=== PATIENT | female | born 1950 | race Caucasian/White ===

== ENCOUNTER → 2020-07-08 11:43 | Outpatient (CLI) | payer MEDICARE, SELFPAY ==
--- NOTE | 2020-07-08 11:46 | BI_ITS ---
MAMMOGRAPHY - BILATERAL SCREENING REASON FOR EXAM: Female, 70 years old. Routine annual screening examination. PERTINENT HISTORY: Sister with breast cancer. Mother with breast cancer. Grandmother with breast cancer TECHNIQUE: Digital bilateral breast keri (3D mammographic acquisition) in the CC and MLO projections. 2-D mediolateral oblique (MLO) and craniocaudad (CC) views of both breasts were obtained. CAD: Full Field Digital Mammography with Computer Added Detection was performed. COMPARISON: Comparison is made with prior outside examination 07/05/2019. FINDINGS: Breast Composition: The breasts are almost entirely fatty. There are no dominant masses or suspicious calcifications. Stable small bilateral axillary lymph nodes. No other significant abnormalities are identified. There has been no significant change since the prior study. BI/SCREEN MAMM (CAD) W/KERI BILAT IMPRESSION: Stable bilateral screening mammogram. Yearly follow-up mammogram recommended. (A) ASSESSMENT CATEGORY: BIRADS Category 2: Benign. A letter regarding these results will be sent to the patient by the facility within 30 days. Approximately 10% of breast cancers are not detected by mammography. A normal mammogram should not delay biopsy of a clinically suspicious abnormality. [id number] Electronically Signed: Sean Herrera, at 13:50 EST , Service support ,
== END ==
PROVIDERS: PCP Family Medicine; Referring Provider Family Medicine; Visit Provider Family Medicine
DX: Z12.31 Encounter for screening mammogram for malignant neoplasm of breast (principal)
CPT/HCPCS: 77063; 77067

== ENCOUNTER → 2021-07-09 10:29 | Outpatient (CLI) | payer MEDICARE, SELFPAY ==
--- NOTE | 2021-07-09 10:33 | BI_ITS ---
MAMMOGRAPHY - BILATERAL SCREENING REASON FOR EXAM: Female, 71 years old. Routine annual screening examination. PERTINENT HISTORY: Sister with breast cancer. Mother with breast cancer. Grandmother with breast cancer. TECHNIQUE: Digital bilateral breast keri (3D mammographic acquisition) in the CC and MLO projections. 2-D mediolateral oblique (MLO) and craniocaudad (CC) views of both breasts were obtained. CAD: Full Field Digital Mammography with Computer Added Detection was performed. COMPARISON: Comparison is made with prior study dated 07/08/2020. FINDINGS: Breast Composition: The breasts are almost entirely fatty. There are no dominant masses or suspicious calcifications. A tissue clip marker is seen in the upper lateral aspect of the right breast. Stable small benign-appearing bilateral axillary lymph nodes. No other significant abnormalities are identified. There has been no significant change since the prior study. BI/SCRN MAMM (CAD)W/KERI BILAT IMPRESSION: Stable bilateral screening mammogram. Yearly follow-up mammogram recommended. (A) ASSESSMENT CATEGORY: BIRADS Category 2: Benign. A letter regarding these results will be sent to the patient by the facility within 30 days. Approximately 10% of breast cancers are not detected by mammography. A normal mammogram should not delay biopsy of a clinically suspicious abnormality. [id number] Electronically Signed: Sean Herrera MD at 12:33 EDT , Service support ,
== END ==
PROVIDERS: PCP Family Medicine; Visit Provider Family Medicine
DX: Z12.31 Encounter for screening mammogram for malignant neoplasm of breast (principal)
CPT/HCPCS: 77063; 77067

== ENCOUNTER → 2022-07-10 | Outpatient (CLI) | payer MEDICARE, SELFPAY ==
--- NOTE | 2022-07-10 10:20 | BI_ITS ---
MAMMOGRAPHY - BILATERAL SCREENING REASON FOR EXAM: Female, 72 years old. Routine annual screening examination. PERTINENT HISTORY: Sister with breast cancer. Sister with breast cancer. Mother with breast cancer. Grandmother with breast cancer. TECHNIQUE: Digital bilateral breast keri (3D mammographic acquisition) in the CC and MLO projections. 2-D mediolateral oblique (MLO) and craniocaudad (CC) views of both breasts were obtained. CAD: Full Field Digital Mammography with Computer Added Detection was performed. COMPARISON: Comparison is made with prior study 07/09/2021. FINDINGS: Breast Composition: The breasts are almost entirely fatty. There are no dominant masses or suspicious calcifications. A tissue clip marker is once again seen in the upper lateral aspect of the right breast stable small benign-appearing bilateral axillary lymph nodes. No other significant abnormalities are identified. There has been no significant change since the prior study. BI/SCRN MAMM (CAD)W/KERI BILAT IMPRESSION: Stable bilateral screening mammogram. Yearly follow-up mammogram recommended. (A) ASSESSMENT CATEGORY: BIRADS Category 2: Benign. A letter regarding these results will be sent to the patient by the facility within 30 days. Approximately 10% of breast cancers are not detected by mammography. A normal mammogram should not delay biopsy of a clinically suspicious abnormality. [id number] Electronically Signed: Sean Herrera MD at 11:16 EDT ,
== END | disposition home or self-care (01) ==
LOC: OPBI 10:18
PROVIDERS: PCP Family Medicine; Visit Provider Family Medicine
DX: Z12.31 Encounter for screening mammogram for malignant neoplasm of breast (principal); Z80.3 Family history of malignant neoplasm of breast
CPT/HCPCS: 77063; 77067

== ENCOUNTER 2023-11-08 09:38 | Inpatient (IN) | payer MEDICARE, SELFPAY ==
[2023-11-08] VITALS (9 sets, daily range): BP systolic 155–186; BP diastolic 55–92; PULSE 62–79; RESP 16–22; TEMP 36.1–36.7; O2SAT 94–96; BMI 54.8
--- NOTE | 2023-11-08 09:47 | CT_ITS ---
HISTORY: right anterior lower rib trauma. TECHNIQUE: Helically acquired images were obtained of the chest without contrast. A radiation dose optimization technique was used for this scan. 940 images. COMPARISON: None. FINDINGS: LARGE AIRWAYS: Patent. LUNGS: Very mild lower lobe atelectasis. PLEURA: No pneumothorax or significant pleural effusion. HEART/PERICARDIUM: Heart within normal limits in size with coronary artery calcification. No pericardial effusion. VESSELS: Thoracic aorta nondilated. Mild atherosclerosis. MEDIASTINUM/KATE: No pathologically enlarged adenopathy. Nodular thyroid with small calcifications in the right lobe. UPPER ABDOMEN: Left renal cortical scarring with a 2 mm nonobstructing calcification. 4.4 cm simple appearing right renal cyst. BONES: Nondisplaced segmental fractures of the lateral right fourth through sixth ribs. Nondisplaced lateral right seventh and eighth rib fractures. Chronic left third through fifth anterior rib fractures. Degenerative change and spinal osteophytes noted. 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 Chronic mild T12 and L2 compression fractures. Mild scoliosis. CT/Chest without Contrast IMPRESSION: Nondisplaced right fourth through eighth rib fractures. No pneumothorax. Electronically Signed: Ute Berumen MD at 10:52 EST ,
--- NOTE | 2023-11-08 09:49 | EX.ED.DYSGE1 ---
HPI History of Present Illness Chief Complaint: Fall Informant: patient Narrative Narrative: 73-year-old female presenting to the emergency room following a fall. Patient states she went to [facility] dermatology for a blister on her right calf. She states that she had a zinc boot placed and is to see them again in 1 week. She was leaving her appointment going down the ramp with her walker and the walker got away from her and she fell forward twisting slightly and landing on the right shoulder arm. She notes pain from the shoulder to the mid right arm. She notes painful range of motion. She also notes pain in the right lower anterior ribs. She denies any shortness of breath. She denies any head or neck injury. She denies headache. No loss of consciousness. She got up with assistance and did not have any pain in the pelvis hips or legs. She denies any symptoms in the right arm from the elbow distally. [facility] Medical History Carpal tunnel syndrome Cellulitis Fibroid Gout Kidney disease Meralgia paraesthetica Shingles rash Sleep apnea Spinal stenosis Home Medications cholecalciferol (vitamin D3) 125 mcg (5,000 unit) capsule 5,000 unit PO DAILY 11/08/23 [History Last Taken Unknown] ferrous sulfate 325 mg (65 mg iron) tablet 325 mg PO DAILY 11/08/23 [History Last Taken Unknown] lisinopril 40 mg tablet 40 mg PO DAILY HTN 11/08/23 [History Last Taken 11/08/23] sertraline 50 mg tablet 50 mg PO Q24H 11/08/23 [History Last Taken 11/08/23] Allergy/AdvReac Type Severity Reaction Status Date / Time ciprofloxacin [From Cipro] Allergy Mild Hives Verified 11/08/23 09:43 sulfamethoxazole Allergy Mild Hives Verified 11/08/23 09:43 [From Bactrim] trimethoprim [From Bactrim] Allergy Mild Hives Verified 11/08/23 09:43 amoxicillin AdvReac Mild Diarrhea Verified 11/08/23 09:43 Surgical History H/O: hysterectomy History of cholecystectomy History of tonsillectomy Social History Smoking Status: Never smoker ROS ROS ED Constitutional Constitutional ED: Denies chills, fever(s) or weight loss Eyes Eyes: Denies change in vision or diplopia ENT ENT ED: Denies ear pain, rhinorrhea or sore throat Cardiovascular Cardiovascular: Denies chest pain, orthopnea, palpitations or racing heartbeat Respiratory/Chest Respiratory/Chest: Reports other Details: Pain anterior lower right chest ; Denies cough, dyspnea or orthopnea Gastrointestinal Gastrointestinal: Denies abdominal pain, diarrhea, nausea or vomiting Genitourinary Genitourinary ED: Denies dysuria, hematuria or urinary frequency Musculoskeletal Musculoskeletal: Reports other Details: Right arm/shoulder pain ; Denies arthralgias, back pain, myalgias or neck pain Integumentary Reports other Details: Blister right lower leg ; Denies abscess or rash Neurologic Neurologic: Denies headache(s) or weakness Psychiatric Psychiatric: Denies anxiety, depression, suicidal ideation or suicidal thoughts Endocrine Endocrinology: Denies polydipsia, polyphagia or polyuria Allergic/Immunologic Allergic/Immunologic ED: Denies mouth swelling, tongue swelling or urticaria EXAM Physical Exam Const Vital Signs: 11/08/23 09:39 11/08/23 09:47 11/08/23 12:07 Temperature 97 F L Temperature Source Temporal Pulse Rate 79 79 Respiratory Rate 16 18 Respiratory Effort Normal Non-Labored Respiratory Depth Normal Respiratory Pattern Normal Blood Pressure 168/92 H 155/73 H Blood Pressure Mean 117 100 Pulse Ox 95 96 94 Oxygen Delivery Method Room Air Room Air Room Air Positive well nourished, well developed and obese General Appearance ED: well developed Nutritional Appearance: obese HEENT Reports normocephalic, head/scalp atraumatic and moist mucous membranes Eyes PERRL and EOMs intact bilaterally Neck no lymphadenopathy, supple and no JVD Chest Wall Negative for palpation of chest normal Chest Narrative: Tender to palpation in the anterior lower ribs. There is no obvious ecchymosis or abrasions noted. No crepitance felt. Resp normal respiratory effort and clear to auscultation bilaterally Cardio regular rate, regular rhythm and no murmurs GI normal to inspection, nondistended, normoactive bowel sounds and non-tender Palpation: soft Back/Spine no CVA tenderness and normal ROM Cervical Spine: Negative for cervical spine tenderness Thoracic Spine / Upper Back: Negative for thoracic spinal tenderness or paraspinal muscle tenderness Lumbar Spine / Lower Back: Negative for lumbar spinal tenderness Extremity Extremity Narrative: Patient has tenderness palpation right shoulder and inferiorly to the distal third of the humerus. There is no obvious deformity. Patient's body habitus does limit exam. She has painful range of motion. Neurovascularly appears intact distally. No obvious skin trauma. General Extremety ED: Negative for edema General Extremity: Negative for edema Neuro oriented x3 and CN's II-XII intact bilaterally Sensorium / Orientation: alert Motor Exam: strength 5/5 throughout Psych mental status grossly normal Mood & Affect: Negative for depressed or tearful Skin no rashes or lesions noted and no wounds MDM MDM MDM Narrative Medical decision making narrative: Patient received a Percocet for pain. My depend interpretation of the humerus x-ray is no acute fracture. Magnapen interpretation of the shoulder x-ray is no acute fracture. CT of the chest demonstrates nondisplaced fractures of ribs 4, 5, 6, 7, and 8. No obvious pneumothorax or significant hemothorax noted. No obvious pulmonary contusion. Patient is 73 years old morbidly obese already uses a walker and now has 5 consecutive rib fractures. Patient continues to have significant pain with cough and movement. I spoke with general surgery Dr. Martin who is happy to follow along with the patient. I will speak with the hospitalist regarding admission for pain control and probable PT/OT eval should the patient require rehab placement. Radiography Diagnostic Testing: Clinical Impression(s) from Imaging Studies Chest CT 11/08/23 09:47 IMPRESSION: Nondisplaced right fourth through eighth rib fractures. No pneumothorax. Electronically Signed: Ute Berumen MD at 10:52 EST , Humerus X-Ray 11/08/23 10:32 IMPRESSION: Normal x-ray examination of the right humerus. Electronically Signed: Forrest Presley MD at 10:50 EST , Shoulder X-Ray 11/08/23 11:05 IMPRESSION: No definite acute fracture or dislocation identified in the right shoulder. Electronically Signed: Ute Berumen MD at 11:18 EST , Discharge Plan Dx/Rx/DC Orders Clinical Impression: Multiple closed fractures of ribs of right side, Fall, Contusion of arm, right Disposition Disposition: Acute Care Hospital [facility]
[2023-11-08] MEDS: Oxycodone/Apap 5/325 Tablet PO (10:08)
--- NOTE | 2023-11-08 10:32 | RAD_ITS ---
STUDY: X-RAY - RIGHT HUMERUS REASON FOR EXAM: Female, 73 years old. Injury. TECHNIQUE: 2 views of the right humerus. COMPARISON: None. FINDINGS: Normal visualized humerus. There is no demonstrated fracture or osseous destructive process. There is no demonstrated soft tissue abnormality. RAD/Humerus min 2 Views IMPRESSION: Normal x-ray examination of the right humerus. Electronically Signed: Forrest Presley MD at 10:50 EST ,
--- NOTE | 2023-11-08 11:05 | RAD_ITS ---
HISTORY: injury. TECHNIQUE: XR Shoulder Min 2 Views. COMPARISON: None. FINDINGS: BONES : No acute fracture identified. JOINTS: No dislocation. Moderate degenerative change. SOFT TISSUES: Limited evaluation due to body habitus. RAD/Shoulder min 2 Views IMPRESSION: No definite acute fracture or dislocation identified in the right shoulder. Electronically Signed: Ute Berumen MD at 11:18 EST ,
--- NOTE | 2023-11-08 12:06 | PCM.HP.STD ---
HPI - General General Date of Admission: 11/08/23 Date of Service: 11/08/23 Chief Complaint: Mechanical fall with right rib fractures, debility HPI Narrative LISA MEIER, is a 73 F who presented to [facility] ED on 11/08/2023 after a mechanical fall. Patient seen at bedside on the floor shortly after arriving over from the ED. Patient was sitting comfortably in bedside chair, conversing normally, in no acute distress. Patient is very pleasant. Patient states she was at a dermatology appointment this morning for a blister on her right calf, had zinc boot placed for this. As she was leaving her appointment and going on the ramp with her walker, her walker got away from her and she fell forward with slight twisting and landed on her right side. States had pain from the shoulder to the mid right arm and into the right side of her chest after the fall. Had moderate pain at rest that became very severe with any motion. She otherwise denied any shortness of breath or difficulty breathing. Denied any lightheadedness or dizziness contributing to the fall. Did not have any loss of consciousness and did not hit her head. States she got up with assistance from staff there and did not have any pain in the pelvis, hips or legs. Patient lives at home alone and was concerned about being able to care for self at home, show she requested admission to the hospital for further evaluation by therapy. No other acute concerns at this time. [facility] Medical History Carpal tunnel syndrome Cellulitis Fibroid Gout Kidney disease Meralgia paraesthetica Shingles rash Sleep apnea Spinal stenosis Home Medications cholecalciferol (vitamin D3) 125 mcg (5,000 unit) capsule 5,000 unit PO DAILY supplemental 11/08/23 [History Last Taken 11/07/23] ferrous sulfate 325 mg (65 mg iron) tablet 325 mg PO DAILY supplemental 11/08/23 [History Last Taken 11/07/23] lisinopril 40 mg tablet 40 mg PO DAILY HTN 11/08/23 [History Last Taken 11/08/23] sertraline 50 mg tablet 50 mg PO Q24H 11/08/23 [History Last Taken 11/08/23] Allergy/AdvReac Type Severity Reaction Status Date / Time ciprofloxacin [From Cipro] Allergy Mild Hives Verified 11/08/23 09:43 sulfamethoxazole Allergy Mild Hives Verified 11/08/23 09:43 [From Bactrim] trimethoprim [From Bactrim] Allergy Mild Hives Verified 11/08/23 09:43 amoxicillin AdvReac Mild Diarrhea Verified 11/08/23 09:43 Surgical History H/O: hysterectomy History of cholecystectomy History of tonsillectomy Social History Smoking Status: Never smoker ROS Constitutional Constitutional: Denies chills, fatigue, fever(s) or weakness Eyes Eyes: Denies change in vision Cardiovascular Cardiovascular: Denies chest pain Respiratory/Chest Respiratory/Chest: Denies cough, shortness of breath at rest or shortness of breath with exertion Gastrointestinal Gastrointestinal: Denies abdominal pain Genitourinary Genitourinary: Denies dysuria Musculoskeletal Musculoskeletal: Reports joint pain and other Details: Right-sided chest pain, right shoulder and right elbow pain. ; Denies back pain Neurologic Neurologic: Denies dizziness, focal weakness, headache(s), numbness, paresthesias or syncope Vital Signs Vital Signs Vital Signs: 11/08/23 09:39 11/08/23 09:47 Temperature 97 F L Temperature Source Temporal Pulse Rate 79 Respiratory Rate 16 Respiratory Effort Normal Non-Labored Respiratory Depth Normal Respiratory Pattern Normal Blood Pressure 168/92 H Blood Pressure Mean 117 Pulse Ox 95 96 Oxygen Delivery Method Room Air Room Air Weight Weight: 136 kg Body Mass Index (BMI) 54.8 Physical Exam Const alert, oriented x3 and no apparent distress Constitutional Narrative: Elderly female, morbidly obese, very pleasant, sitting comfortably in bedside chair, conversing normally, no acute distress. General Appearance: cooperative and comfortable HEENT normocephalic, head/scalp atraumatic, hearing grossly normal bilaterally, nasal mucous membranes and turbinates normal and moist oral mucous membranes Eyes PERRL, EOMs intact bilaterally and conjunctivae normal Chest inspection of chest normal Chest Narrative: Mild to moderate tenderness palpation in the right lateral rib area, no external bruising noted. Resp normal respiratory effort, normal air movement, no use of accessory muscles and clear to auscultation bilaterally Cardio regular rate, regular rhythm, no murmurs and peripheral pulses 2+ throughout GI normal to inspection, nondistended, normoactive bowel sounds, soft to palpation, non-tender and non-distended Back/Spine normal ROM Extremity normal to inspection and no pedal edema Extremity Narrative: Mild to moderate tenderness to palpation in right shoulder down into right elbow. Reported moderate pain with any motion of the arm. Skin Skin Narrative: Right foot boot noted. Neuro moves all extremities and no focal motor deficits Speech: speech normal Psych mental status grossly normal Results Imaging Radiology Impression Chest CT 11/08/23 09:47 IMPRESSION: Nondisplaced right fourth through eighth rib fractures. No pneumothorax. Electronically Signed: Ute Berumen MD at 10:52 EST , Humerus X-Ray 11/08/23 10:32 IMPRESSION: Normal x-ray examination of the right humerus. Electronically Signed: Forrest Presley MD at 10:50 EST , Shoulder X-Ray 11/08/23 11:05 IMPRESSION: No definite acute fracture or dislocation identified in the right shoulder. Electronically Signed: Ute Berumen MD at 11:18 EST , Assessment & Plan Assessment/Plan (1) Fall: (2) Multiple closed fractures of ribs of right side: (3) Debility: PLAN: Plan Patient is a 73-year-old female who presented [facility] ED on 11/08/2023 with right-sided chest pain and arm pain after a mechanical fall. 1. Mechanical fall with acute debility, nondisplaced right 4th-8th rib fractures ? Lives alone, mild debility at baseline in part due to her super morbid obesity, uses walker for ambulation. ? Had mechanical fall onto right side, denied presyncopal symptoms. ? Right shoulder and humerus x-rays with no acute fracture. ? CT chest showed nondisplaced right fourth through eighth rib fractures. No pneumothorax noted. Also noted chronic left third through fifth anterior rib fractures from previous fall. ? ED discussed with on-call surgery, no surgical intervention required. ? PT/OT/case management consulted. Suspect patient will need either home with home health care versus SNF on discharge. ? Pain control with scheduled Tylenol, lidocaine patch, as needed oxycodone for now. Incentive spirometry at bedside. Chronic medical conditions: ? Super morbid obesity: BMI 54 on admit. Complicates hospital course, care and prognosis. ? Hypertension: Continue home lisinopril. ? Depression: Continue home sertraline. DVT prophylaxis: Lovenox twice daily CODE STATUS: Full code, verified Expected disposition: Home with home health care versus SNF, 2 to 3 days Total clinical time spent by myself addressing the patient's medical issues, reviewing all the data, and collaborating with patient's care team: 55 minutes. Charges/Coding Visit Charges Inpatient E&M: 03015 Init Hosp L2
[2023-11-08] MEDS: oxyCODONE 5 MG Tablet PO ×2 (14:11→22:09)
[2023-11-08] MEDS: Acetaminophen 500 MG Tablet 1000 MG PO ×2 (14:11→21:15)
[2023-11-08] MEDS: Lidocaine 5% Patch 1 PATCH TOPICAL (16:43)
[2023-11-08 18:01] LABS: Absolute Lymphocyte Count 1.11 X10^3/uL (0.83-4.51); Absolute Neutrophil Count 12.8 X10^3/uL (2.0-7.7); Basophil# 0.06 X10^3/uL; Basophil% 0.4 % (0-1); Eosinophil# 0.01 X10^3/uL; Eosinophils% 0.1 % (0-5); Hematocrit 40.8 % (37-47); Hemoglobin 12.7 g/dL (12.0-15.0); Lymphocyte # 1.11 X10^3/ul (0.83-4.51); Lymphocyte % 7.6 % (19-41); Mean Corp Hgb Conc 31.1 g/dL (32-36); Mean Corpuscular Hgb 27.9 pg (27.0-32.0); Mean Corpuscular Volume 89.5 fL (81-99); Mean Platelet Vol. 11.2 fl (6.2-12.0); Monocyte# 0.63 X10^3/uL; Monocyte% 4.3 % (0-10); NRBC Flagged by Analyzer 0 % (0-5); Neutrophil # 12.78 X10^3/uL (2.7-7.7); Neutrophil % 87.3 % (47-70); Platelet Count 231 K/mm3 (150-450); RBC Distribution Width CV 15.5 % (11.6-14.6); RBC Distribution Width SD 50.7 fl (35.1-43.9); Red Blood Count 4.56 M/mm3 (4.2-5.4); White Blood Count 14.6 K/mm3 (4.4-11.0)
[2023-11-08 18:14] LABS: Anion Gap 5 (5-15); BUN 19 mg/dL (7-18); BUN/Creat Ratio 14.5 RATIO (10-20); Chloride 105 mmol/L (98-107); Creatinine, Serum 1.31 mg/dL (0.55-1.02); EST Glomerular Filtration Rate 42 mL/min (>60); Est Glom Filt Rate - Afr Amer 51 mL/min (>60); Estimated Creatinine Clearance 51.76 ml/min; Glucose 169 mg/dL (74-106); Potassium 3.8 mmol/L (3.5-5.1); Sodium Level 138 mmol/L (136-145)
[2023-11-08] MEDS: Enoxaparin 40 MG/0.4 ML Syringe SC (21:16)
[2023-11-09] VITALS (8 sets, daily range): BP systolic 99–165; BP diastolic 58–87; PULSE 39–66; RESP 16; TEMP 36.4–36.8; O2SAT 93–96
[2023-11-09] MEDS: oxyCODONE 5 MG Tablet PO ×2 (02:31→21:46)
[2023-11-09] MEDS: Acetaminophen 500 MG Tablet 1000 MG PO ×3 (05:53→21:38)
[2023-11-09 06:57] LABS: Hematocrit 37.3 % (37-47); Hemoglobin 11.6 g/dL (12.0-15.0); Mean Corp Hgb Conc 31.1 g/dL (32-36); Mean Corpuscular Hgb 28.1 pg (27.0-32.0); Mean Corpuscular Volume 90.3 fL (81-99); Mean Platelet Vol. 11.7 fl (6.2-12.0); Platelet Count 199 K/mm3 (150-450); RBC Distribution Width CV 15.4 % (11.6-14.6); RBC Distribution Width SD 50.8 fl (35.1-43.9); Red Blood Count 4.13 M/mm3 (4.2-5.4); White Blood Count 8.6 K/mm3 (4.4-11.0)
[2023-11-09 08:15] LABS: Anion Gap 5 (5-15); BUN 20 mg/dL (7-18); BUN/Creat Ratio 18.2 RATIO (10-20); Calcium,Total 9.1 mg/dL (8.5-10.1); Chloride 107 mmol/L (98-107); EST Glomerular Filtration Rate 52 mL/min (>60); Est Glom Filt Rate - Afr Amer 63 mL/min (>60); Estimated Creatinine Clearance 61.64 ml/min; Glucose 100 mg/dL (74-106); Potassium 3.6 mmol/L (3.5-5.1); Sodium Level 139 mmol/L (136-145)
--- NOTE | 2023-11-09 09:38 | CASEMGMT ---
Discharge Planning A list of?SNF providers including quality and resource use data and consistent with the patient's preferred geographic region, medical needs, and insurance network was created in [employer] Guide.? This list was provided to the SW. Bhakti Feliciano Discharge Planning Asst.
--- NOTE | 2023-11-09 10:12 | PCM.PN.HOSP ---
Reason for Visit Reason for Visit: Diagnoses Other malaise (11/08/23) Multiple fractures of ribs, right side, initial encounter for closed fracture (11/08/23) Unspecified fall, initial encounter (11/08/23) Subjective Subjective No acute events overnight. Patient seen at bedside this morning. Patient had just gotten out of bed and was walking around the room with her walker with the assistance of nursing staff. Patient reported moderate pain in her right ribs and right arm with ambulation. States the oxycodone has been somewhat helped with the pain but has also caused her to feel somewhat lightheaded. Patient does feel like going to a [facility] facility on discharge would be the best option for her at this time given her functional limitations and her living at home alone. Patient otherwise denies any acute concerns morning. Objective Data Objective Data Vital Signs: Vital Signs Temp Pulse Resp BP Pulse Ox O2 Del Method O2 Flow Rate 98.3 F 56 L 16 150/58 H 95 Nasal Cannula 2 11/09/23 08:43 11/09/23 08:43 11/09/23 08:43 11/09/23 08:43 11/09/23 09:05 11/09/23 09:05 11/09/23 09:05 FiO2 21 11/08/23 22:40 Oxygen Flow Rate (L/min) 2 Oxygen Delivery Method Nasal Cannula Weight: 136 kg Body Mass Index (BMI) 54.8 Lab / Micro Data 11/09/23 06:20 11/09/23 06:20 Labs: Laboratory Results - last 24 hr 11/08/23 17:44: WBC 14.6 H, RBC 4.56, Hgb 12.7, Hct 40.8, MCV 89.5, MCH 27.9, MCHC 31.1 L, RDW Std Deviation 50.7 H, RDW Coeff of Amina 15.5 H, Plt Count 231, MPV 11.2, Immature Gran % (Auto) 0.300, Neut % (Auto) 87.3 H, Lymph % (Auto) 7.6 L, [place] % (Auto) 4.3, Eos % (Auto) 0.1, Baso % (Auto) 0.4, Absolute Neuts (auto) 12.8 H, Absolute Lymphs (auto) 1.11, Nucleated RBC % 0, Sodium 138, Potassium 3.8, Chloride 105, Carbon Dioxide 28.0, Anion Gap 5, BUN 19 H, Creatinine 1.31 H, Estim Creat Clear Calc 51.76, Est GFR (MDRD) Af Amer 51 L, Est GFR (MDRD) Non-Af 42 L, BUN/Creatinine Ratio 14.5, Glucose 169 H, Calcium 9.0 11/09/23 06:20: WBC 8.6, RBC 4.13 L, Hgb 11.6 L, Hct 37.3, MCV 90.3, MCH 28.1, MCHC 31.1 L, RDW Std Deviation 50.8 H, RDW Coeff of Amina 15.4 H, Plt Count 199, MPV 11.7, Sodium 139, Potassium 3.6, Chloride 107, Carbon Dioxide 27.0, Anion Gap 5, BUN 20 H, Creatinine 1.10 H, Estim Creat Clear Calc 61.64, Est GFR (MDRD) Af Amer 63, Est GFR (MDRD) Non-Af 52 L, BUN/Creatinine Ratio 18.2, Glucose 100, Calcium 9.1 Radiography Diagnostic Testing: Radiology Impression Chest CT 11/08/23 09:47 IMPRESSION: Nondisplaced right fourth through eighth rib fractures. No pneumothorax. Electronically Signed: Ute Berumen MD at 10:52 EST , Humerus X-Ray 11/08/23 10:32 IMPRESSION: Normal x-ray examination of the right humerus. Electronically Signed: Forrest Presley MD at 10:50 EST , Shoulder X-Ray 11/08/23 11:05 IMPRESSION: No definite acute fracture or dislocation identified in the right shoulder. Electronically Signed: Ute Berumen MD at 11:18 EST , Physical Exam Const alert, oriented x3 and no apparent distress Constitutional Narrative: Elderly female, morbidly obese, very pleasant, sitting at edge of bed with 4-point walker in front of her for balance, conversing normally, no acute distress. General Appearance: cooperative and comfortable HEENT normocephalic, head/scalp atraumatic, hearing grossly normal bilaterally, nasal mucous membranes and turbinates normal and moist oral mucous membranes Eyes PERRL, EOMs intact bilaterally and conjunctivae normal Chest inspection of chest normal Chest Narrative: Mild to moderate tenderness palpation in the right lateral rib area, no external bruising noted. Resp normal respiratory effort, normal air movement, no use of accessory muscles and clear to auscultation bilaterally Cardio regular rate, regular rhythm, no murmurs and peripheral pulses 2+ throughout GI normal to inspection, nondistended, normoactive bowel sounds, soft to palpation, non-tender and non-distended Back/Spine normal ROM Extremity normal to inspection and no pedal edema Extremity Narrative: Mild to moderate tenderness to palpation in right shoulder down into right elbow. Reported moderate pain with any motion of the arm. Neuro moves all extremities and no focal motor deficits Speech: speech normal Psych mental status grossly normal Assessment & Plan Assessment/Plan (1) Fall: (2) Multiple closed fractures of ribs of right side: (3) Debility: PLAN: Plan Patient is a 73-year-old female who presented [facility] ED on 11/08/2023 with right-sided chest pain and arm pain after a mechanical fall. 1. Mechanical fall with acute debility, nondisplaced right 4th-8th rib fractures ? Lives alone, mild debility at baseline in part due to her super morbid obesity, uses walker for ambulation. ? Had mechanical fall onto right side, denied presyncopal symptoms. ? Right shoulder and humerus x-rays with no acute fracture. ? CT chest showed nondisplaced right fourth through eighth rib fractures. No pneumothorax noted. Also noted chronic left third through fifth anterior rib fractures from previous fall. ? ED discussed with on-call surgery, no surgical intervention required. ? PT/OT/case management following. Planning for SNF on discharge, medically ready for discharge on 11/08. ? Pain control with scheduled Tylenol, lidocaine patch, as needed oxycodone, as needed IV Toradol. Incentive spirometry at bedside. Chronic medical conditions: ? Super morbid obesity: BMI 54 on admit. Complicates hospital course, care and prognosis. ? Hypertension: Continue home lisinopril. ? Depression: Continue home sertraline. DVT prophylaxis: Lovenox twice daily CODE STATUS: Full code, verified Expected disposition: SNF, medically ready for discharge on 11/08 Total clinical time spent by myself addressing the patient's medical issues, reviewing all the data, and collaborating with patient's care team: 25 minutes. Charges/Coding Visit Charges Inpatient E&M: 13404 Subs Hosp L1
[2023-11-09] MEDS: Lisinopril 40 MG Tablet PO (10:29)
[2023-11-09] MEDS: Sertraline 50 MG Tablet PO (10:29)
[2023-11-09] MEDS: Lidocaine 5% Patch 1 PATCH TOPICAL (10:29)
[2023-11-09] MEDS: Enoxaparin 40 MG/0.4 ML Syringe SC ×2 (10:30→21:06)
--- NOTE | 2023-11-09 10:30 | CASEMGMT ---
DOMINICK ALVARADO Assessment: Face to Face with pt for initial transition planning/care coordination assessment. DOMINICK ALVARADO introduced self and role at [facility], pt voices understanding and consents to assessment. Pt is A&O x4 and answers all questions appropriately at this time. Pt sitting up in chair in no distress with nurse at bedside. Care providers, pharmacy, and demographics verified/updated. Admitting Dx: fall, debility PCP:Iman Barr SHELLFISH CHECKER Specialists:[facility]; Ovi, nephro; Sibley, Ortho; Isbell, [place] Preferred Pharmacy: [facility] Retail Insurance: [employer] Prescription Benefit: yes LNOK: Teresa Barger, Living Arrangements: Pt lives alone in a single story home with no steps to enter. Pt reports she was I in ADL's prior to fall. Pt denies concerns at home. Transportation: Pt does not drive. Pt friend or landlord transports her to medical appts. DME:CPAP, rollator, shower chair- does not use, grab bars in tub/shower HHC/SNF: Denies hx of Pt states she does not feel that she can dc home today. She states she feels she needs further therapy. Pt states she would like to go to [facility] as she and her mother lived in the [place] for 5 years. Pt has a zinc boot on her R leg and she states that she is supposed to go back to [facility] on Wednesday for this. Pt states no further concerns/needs. CM to follow. Advised pt to ask CM if any further question/concerns/needs arise, voices understanding. Pt Goal: [facility] Plan: SNF, updated SWAPNIL Garces RN, CM
--- NOTE | 2023-11-09 10:51 | CASEMGMT ---
Addendum entered by Bhakti Feliciano 11/09/23 11:14: Patient has been accepted by [facility]. SW updated. Bhakti Feliciano, Discharge Planning Asst. Original Note: Discharge Planning Referral sent via [facility] to [facility]. Bhakti Feliciano, Discharge Planning Asst.
[2023-11-09] MEDS: Ferrous Sulfate 325 MG Tablet PO (11:50)
[2023-11-09] MEDS: Cholecalciferol (VIT D3) 25 MCG TABLET (1,000 UNITS) 50 MCG PO (11:50)
--- NOTE | 2023-11-09 16:30 | CASEMGMT ---
Social Work - SDOH assessment & Discharge Planning Met with patient for SDOH assessment. Patient reports does worry about running out of food, mostly due to having to budget money related to having to pay some medical bills. Reports each month, this is getting easier and easier to budget, but it is still a worry. Talked with patient about utilizing food pantries to help supplement what patient is able to buy. Patient also reports transportation is a stressor, has looked into resources for her area, and has even tried the help offered through insurance, but has not had good results. Reports to have friends who help and are reliable. Talked with patient about discharge planning. Patient reports agreement for short term SNF, which was indicated as a need after patient worked with therapy. Patient reports has been to [facility] in the past, so would like to go back to this facility. Did provide patient with SNF list, generated from [facility] for patient's geographical region and insurance network, including medicare quality and star data. Referral was made to [facility] and per Discharge Gear Cutting Machine Set Up Operator has been accepted. Educated patient [facility]ana [facility] can accept, and this travel writer will start precert with [employer]. Faxed clinical referral information to confirmed fax at [facility]. Called [facility] to ensure receipt of the referral. Per Kathia in , information received but there are multiple SNF requests in so likely wont be processed today. Plan: [facility] pending insurance authorization. Follow up with patient for food/transportation resources for [facility]. -KATHERINE Neves
--- NOTE | 2023-11-09 20:31 | CPS ---
pt states just wearing o2 at hs
[2023-11-10] VITALS (7 sets, daily range): BP systolic 100–164; BP diastolic 71–82; PULSE 52–66; RESP 16–18; TEMP 36.6–36.8; O2SAT 94–98
[2023-11-10] MEDS: oxyCODONE 5 MG Tablet PO (02:29)
[2023-11-10] MEDS: Acetaminophen 500 MG Tablet 1000 MG PO ×2 (05:36→15:42)
--- NOTE | 2023-11-10 10:01 | CASEMGMT ---
Addendum entered by Aleksandra Samuel 11/10/23 13:54: Social Work Per physician, pt is ready for discharge. 7000 exemption form completed in [facility]. DC sales assistants and salespersons updated and to complete discharge. JASON Bolton Addendum entered by Aleksandra Samuel 11/10/23 10:23: Social Work Return call from Sanjuana at [facility]. Pt has been approved for admission to [facility]. Auth# [id number]. Physician notified and pt is ready for dc today. SW met with pt and informed of approval and likely dc today. SW provided pt with food and transportation resources. Plan: [facility], when medically ready JASON Bolton Original Note: Social Work Phone call to pt's insurance to check on precert. Case is under review. Insurance to call this SW with determination. JASON Ospina
[2023-11-10] MEDS: Cholecalciferol (VIT D3) 25 MCG TABLET (1,000 UNITS) 50 MCG PO (10:17)
[2023-11-10] MEDS: Lidocaine 5% Patch 1 PATCH TOPICAL (10:17)
[2023-11-10] MEDS: Lisinopril 40 MG Tablet PO (10:18)
[2023-11-10] MEDS: Sertraline 50 MG Tablet PO (10:18)
[2023-11-10] MEDS: Enoxaparin 40 MG/0.4 ML Syringe SC (10:18)
[2023-11-10] MEDS: Nystatin Powder 15gm Bottle 1 APPLIC TOPICAL (10:21)
[2023-11-10] MEDS: Docusate Sodium 100 MG Capsule PO (10:21)
[2023-11-10] MEDS: Ferrous Sulfate 325 MG Tablet PO (12:01)
--- NOTE | 2023-11-10 12:40 | PCM.TXEXTCAR ---
Diet Diet Order/Speech Therapy: 11/08/23 13:32 Diet: Regular - General Food consistency:: Regular Liquid Consistency:: Regular/Thin Dietary Modifications:: No Added Salt Is pt able to select menu?: Yes Diet Comments: per patient request low sodium/no added salt Routine Orders/Code Status O2 Liters per Minute: 2 liters at night O2 Frequency: PRN Keep PO Greater than or Equal to (%): 88 Code Status: Full Code Wound(s) RLE: Wound Type: Zinc Boot Therapies Weight Bearing: Full weight bearing Extremity Affected:: Right Upper Physical Therapy: Eval and Treat Occupational Therapy: Eval and Treat Problem/Diagnosis (1) Fall: Status: Acute Code(s): W19.XXXA - Unspecified fall, initial encounter (2) Multiple closed fractures of ribs of right side: Status: Acute Code(s): S22.41XA - Multiple fractures of ribs, right side, initial encounter for closed fracture (3) Debility: Status: Acute Code(s): R53.81 - Other malaise Plan Patient is a 73-year-old female who presented [facility] ED on 11/08/2023 with right-sided chest pain and arm pain after a mechanical fall. Short hospital course as noted below. Patient was discharged to care home facility in stable condition on 11/09. 1. Mechanical fall with acute debility, nondisplaced right 4th-8th rib fractures ? Lives alone, mild debility at baseline in part due to her super morbid obesity, uses walker for ambulation. ? Had mechanical fall onto right side, denied presyncopal symptoms. ? Right shoulder and humerus x-rays with no acute fracture. ? CT chest showed nondisplaced right fourth through eighth rib fractures. No pneumothorax noted. Also noted chronic left third through fifth anterior rib fractures from previous fall. ? ED discussed with on-call surgery, no surgical intervention required. ? PT/OT/case management followed. Discharged to SNF in stable condition on 11/09. ? Pain control with scheduled Tylenol, lidocaine patch, as needed oxycodone. Incentive spirometry at bedside. Chronic medical conditions: ? Super morbid obesity: BMI 54 on admit. Complicates hospital course, care and prognosis. ? Hypertension: Continue home lisinopril. ? Depression: Continue home sertraline. Total clinical time spent by myself addressing the patient's medical issues, reviewing all the data, and collaborating with patient's care team: 25 minutes. Allergies/Procedures Done in Hospital Allergies ciprofloxacin [From Cipro] Allergy (Mild, Verified 11/08/23 09:43) Hives sulfamethoxazole [From Bactrim] Allergy (Mild, Verified 11/08/23 09:43) Hives trimethoprim [From Bactrim] Allergy (Mild, Verified 11/08/23 09:43) Hives amoxicillin Adverse Reaction (Mild, Verified 11/08/23 09:43) Diarrhea Procedures: - (Right shoulder x-ray, right humerus x-ray, CT chest without contrast) Type of Care/Length of Stay Estimated LOS: Convalescent Care Less Than 30 days Type of Care Needed: Skilled Rehab Potential: Fair Prognosis: Fair Additional Orders/Day of Discharge H&P will serve as current which was dated: 11/08/23 Day of Discharge: 11/10/23 Dietary and Speech Recommendations Dietitian Recommendations/Changes: Continue Regular - SHARAD diet per pt request to optimize oral intakes. Discharge Plan Admission Admit Date/Time: 11/08/23 12:08 Attending Provider: Raymond Dorsey Primary Care Provider: Iman Barr NP Discharge Orders/Prescriptions Prescriptions: No Action lisinopril 40 mg tablet 40 mg PO DAILY Patient Comments: TAKE 1 TABLET BY MOUTH ONCE DAILY sertraline 50 mg tablet 50 mg PO Q24H Patient Comments: TAKE 1 TABLET BY MOUTH ONCE DAILY cholecalciferol (vitamin D3) 125 mcg (5,000 unit) capsule 5,000 unit PO DAILY Patient Comments: TAKE 1 CAPSULE BY MOUTH ONCE DAILY Rx Instructions: PT STATED SHE TAKES 2000U ferrous sulfate 325 mg (65 mg iron) tablet 325 mg PO DAILY Patient Comments: TAKE 1 TABLET BY MOUTH ONCE DAILY Referrals / Follow Up: Nette Sibley MD [Non-Staff] - Iman Barr NP, RN LVN-C [Primary Care Provider] - Charges/Coding Visit Charges Inpatient E&M: 69309 Disch Hosp
--- NOTE | 2023-11-10 12:44 | DS.PCM_ITS ---
Providers Date of Admission: 11/08/23 Date of Discharge: 11/10/23 Primary Care Physician: Iman Barr, ESTELA Reason For Visit: FALL, DEBILITY Diagnosis Discharge Diagnosis (1) Fall: Status: Acute Code(s): W19.XXXA - Unspecified fall, initial encounter (2) Multiple closed fractures of ribs of right side: Status: Acute Code(s): S22.41XA - Multiple fractures of ribs, right side, initial encounter for closed fracture (3) Debility: Status: Acute Code(s): R53.81 - Other malaise Medications at Discharge Home Medications cholecalciferol (vitamin D3) 125 mcg (5,000 unit) capsule 5,000 unit PO DAILY supplemental 11/08/23 ferrous sulfate 325 mg (65 mg iron) tablet 325 mg PO DAILY supplemental 11/08/23 lisinopril 40 mg tablet 40 mg PO DAILY HTN 11/08/23 sertraline 50 mg tablet 50 mg PO Q24H 11/08/23 Hospital Course Procedures - (Right shoulder x-ray, right humerus x-ray, CT chest without contrast) Summary of Care Provided Minutes Spent on Discharge: 25 Hospital Course: Patient is a 73-year-old female who presented [facility] ED on 11/08/2023 with right-sided chest pain and arm pain after a mechanical fall. Short hospital course as noted below. Patient was discharged to halfway facility in stable condition on 11/09. 1. Mechanical fall with acute debility, nondisplaced right 4th-8th rib fractures ? Lives alone, mild debility at baseline in part due to her super morbid obesity, uses walker for ambulation. ? Had mechanical fall onto right side, denied presyncopal symptoms. ? Right shoulder and humerus x-rays with no acute fracture. ? CT chest showed nondisplaced right fourth through eighth rib fractures. No pneumothorax noted. Also noted chronic left third through fifth anterior rib fractures from previous fall. ? ED discussed with on-call surgery, no surgical intervention required. ? PT/OT/case management followed. Discharged to SNF in stable condition on 11/09. ? Pain control with scheduled Tylenol, lidocaine patch, as needed oxycodone. Incentive spirometry at bedside. Chronic medical conditions: ? Super morbid obesity: BMI 54 on admit. Complicates hospital course, care and prognosis. ? Hypertension: Continue home lisinopril. ? Depression: Continue home sertraline. Total clinical time spent by myself addressing the patient's medical issues, reviewing all the data, and collaborating with patient's care team: 25 minutes. Physical Exam Const alert, oriented x3 and no apparent distress Constitutional Narrative: Elderly female, morbidly obese, very pleasant, sitting in bedside chair comfortably, conversing normally, no acute distress. General Appearance: cooperative and comfortable HEENT normocephalic, head/scalp atraumatic, hearing grossly normal bilaterally, nasal mucous membranes and turbinates normal and moist oral mucous membranes Eyes PERRL, EOMs intact bilaterally and conjunctivae normal Chest inspection of chest normal Chest Narrative: Mild to moderate tenderness palpation in the right lateral rib area, no external bruising noted. Resp normal respiratory effort, normal air movement, no use of accessory muscles and clear to auscultation bilaterally Cardio regular rate, regular rhythm, no murmurs and peripheral pulses 2+ throughout GI normal to inspection, nondistended, normoactive bowel sounds, soft to palpation, non-tender and non-distended Back/Spine normal ROM Extremity normal to inspection and no pedal edema Extremity Narrative: Mild to moderate tenderness to palpation in right shoulder down into right elbow. Reported moderate pain with any motion of the arm. Neuro moves all extremities and no focal motor deficits Speech: speech normal Psych mental status grossly normal Weight / BMI Weight Weight: 136 kg Body Mass Index (BMI) 54.8 ABG / Lab / Microbiology Data 11/09/23 06:20 11/09/23 06:20 Meaningful Use Info Meaningful Use Diagnoses (Choose all that apply): None applicable Discharge Plan Admission Admit Date/Time: 11/08/23 12:08 Attending Provider: Raymond Dorsey Primary Care Provider: Iman Barr TELEPHONE OPERATOR RECEPTIONIST Discharge Orders/Prescriptions Prescriptions: No Action lisinopril 40 mg tablet 40 mg PO DAILY Patient Comments: TAKE 1 TABLET BY MOUTH ONCE DAILY sertraline 50 mg tablet 50 mg PO Q24H Patient Comments: TAKE 1 TABLET BY MOUTH ONCE DAILY cholecalciferol (vitamin D3) 125 mcg (5,000 unit) capsule 5,000 unit PO DAILY Patient Comments: TAKE 1 CAPSULE BY MOUTH ONCE DAILY Rx Instructions: PT STATED SHE TAKES 2000U ferrous sulfate 325 mg (65 mg iron) tablet 325 mg PO DAILY Patient Comments: TAKE 1 TABLET BY MOUTH ONCE DAILY Referrals / Follow Up: Nette Sibley MD [Non-Staff] - Iman Barr NP, TELEPHONE OPERATOR RECEPTIONIST-C [Primary Care Provider] - Charges/Coding Visit Charges Inpatient E&M: 14669 Disch Hosp
--- NOTE | 2023-11-10 12:45 | DCINST_ITS ---
Discharge Instructions Diet Discharge Diet: No restrictions Activity Discharge Activity: Use Walker Weight Bearing Status: Full weight bearing Follow Up Care Test Results: Test results from this visit will be discussed in further detail at your follow- up appointment, if applicable. Discharge Plan Admission Admit Date/Time: 11/08/23 12:08 Primary Reason for Your Visit: Fall with right rib fractures and right arm pain Attending Provider: Raymond Dorsey Primary Care Provider: Iman Barr NP Discharge Orders/Prescriptions Prescriptions: New acetaminophen 500 mg Tablet 1,000 mg PO Q8 Qty: 0 0RF docusate sodium 100 mg Capsule 100 mg PO DAILY Qty: 0 0RF lidocaine 5 % Adhesive Patch,Medicated 1 patch topical DAILY Qty: 0 0RF Protocol: *Topical Application Instructions APPLICATION INSTRUCTIONS: right ribs nystatin [Nyamyc] 100,000 unit/gram Powder 1 applic topical BID Qty: 0 0RF Protocol: *Topical Application Instructions APPLICATION INSTRUCTIONS: to skin folds, under breasts oxycodone 5 mg Tablet 5 mg PO Q4H PRN PRN (Reason: Pain Score 4-10) Qty: 0 0RF Remove Patch 1 patch topical DAILY@2200 Qty: 0 0RF Continued lisinopril 40 mg tablet 40 mg PO DAILY Patient Comments: TAKE 1 TABLET BY MOUTH ONCE DAILY sertraline 50 mg tablet 50 mg PO Q24H Patient Comments: TAKE 1 TABLET BY MOUTH ONCE DAILY cholecalciferol (vitamin D3) 125 mcg (5,000 unit) capsule 5,000 unit PO DAILY Patient Comments: TAKE 1 CAPSULE BY MOUTH ONCE DAILY Rx Instructions: PT STATED SHE TAKES 2000U ferrous sulfate 325 mg (65 mg iron) tablet 325 mg PO DAILY Patient Comments: TAKE 1 TABLET BY MOUTH ONCE DAILY Referrals / Follow Up: Nette Sibley MD [Non-Staff] - Iman Barr NP, SERVER PROGRAMMER-C [Primary Care Provider] - Disposition Disposition (needs filled in before D/C Order can be placed): [facility] Facility
--- NOTE | 2023-11-10 14:19 | CASEMGMT ---
Discharge Planning Discharge orders, signed med list, and transport time sent to [facility] via [facility]. Physicians will transport patient by wheelchair at 3:30p. Nursing, SW, and patient updated. Patient states she will update her sister. Bhakti Feliciano, Discharge Planning Asst.
== END 2023-11-10 19:16 | disposition skilled nursing facility (03) | DRG 184 ==
LOC: ED 11:57 → MS3 12:44
PROVIDERS: Admitting Provider Hospitalist; Emergency Provider Emergency Medicine; PCP Nurse Practitioner Family; Visit Provider Hospitalist
DX: S22.41XA Multiple fractures of ribs, right side, initial encounter for closed fracture (principal); Z68.43 Body mass index [BMI] 50.0-59.9, adult; E66.01 Morbid (severe) obesity due to excess calories; I10 Essential (primary) hypertension; F32.A Depression, unspecified; S40.021A Contusion of right upper arm, initial encounter; W10.2XXA Fall (on)(from) incline, initial encounter; Y92.531 Health care provider office as the place of occurrence of the external cause; R53.81 Other malaise; S22.42XD Multiple fractures of ribs, left side, subsequent encounter for fracture with routine healing; Z79.899 Other long term (current) drug therapy
CPT/HCPCS: 36415; 71250; 73030; 73060; 80048; 85025; 85027; 94660; 94668; 94762; 97162; 97166; 97530; 99283